=== PATIENT | male | born 1960 | race Caucasian/White ===

== ENCOUNTER 2020-04-13 18:38 | Emergency (ER) | payer OTHER ==
[~2020-04-13] VITALS: Ht 167.6 cm; Wt 74.8 kg
[2020-04-13] MEDS ORDERED: DIOVAN160 M1 (18:51)
== END 2020-04-13 21:47 | disposition home or self-care (01) ==
LOC: ER 18:38
DX: K52.9 Noninfective gastroenteritis and colitis, unspecified (principal); Z03.818 Encounter for observation for suspected exposure to other biological agents ruled out

== ENCOUNTER 2021-08-19 12:44 | Emergency (ER) | payer OTHER ==
[~2021-08-19] VITALS: Ht 175.3 cm; Wt 81.2 kg
[~2021-08-19 12:44] MED LIST: DIOVAN160 M1
== END 2021-08-19 15:54 | disposition home or self-care (01) ==
LOC: ER 12:44
DX: U07.1 COVID-19 (principal); Z88.6 Allergy status to analgesic agent; I10 Essential (primary) hypertension

== ENCOUNTER 2021-08-19 15:20 | Outpatient (CLI) | payer OTHER | END 2021-08-19 15:55 | disposition home or self-care (01) | LOC: ASH CLINIC 15:20 | PROVIDERS: ATTEND General Practice | DX: Z23 Encounter for immunization (principal); U07.1 COVID-19 ==

== ENCOUNTER 2022-04-05 12:49 | Outpatient (CLI) | payer OTHER | END 2022-04-05 13:00 | disposition home or self-care (01) | LOC: MRI 12:49 | PROVIDERS: ATTEND Specialist | DX: R51.9 Headache, unspecified (principal); R53.81 Other malaise; G43.809 Other migraine, not intractable, without status migrainosus | CPT/HCPCS: 70551 ==

== ENCOUNTER 2022-09-06 13:40 | Emergency (ER) | payer OTHER ==
[~2022-09-06] VITALS: Ht 165.1 cm; Wt 83.9 kg
[2022-09-06] MEDS ORDERED: MEDROLPACK PO (22:12)
== END 2022-09-06 22:16 | disposition home or self-care (01) ==
LOC: ER 13:40
DX: G51.0 Bell's palsy (principal); I63.89 Other cerebral infarction; I10 Essential (primary) hypertension; Z20.822 Contact with and (suspected) exposure to COVID-19; Z88.6 Allergy status to analgesic agent
CPT/HCPCS: 36415; 70460; 70540; 93041; Q9965; 70544